=== PATIENT | female | born 1990 | race American Indian/Alaskan Native ===

== ENCOUNTER 2018-09-09 13:11 | Emergency (ER) | payer MEDICAID ==
--- NOTE | 2018-09-09 13:56 | Emergency Department Report ---
Blank Doc - Documentation Documentation: This is a 28-year-old female that presents with abdominal pain with nausea vom iting. This initial assessment/diagnostic orders/clinical plan/treatment(s) is/are subject to change based on patient's health status, clinical progression and re- assessment by fellow clinical providers in the ED. Further treatment and workup at subsequent clinical providers discretion. Patient/guardians urged not to elope from the ED as their condition may be serious if not clinically assessed and managed. Initial orders include: 1- Patient sent to [facility] for further evaluation and treatment 2- labs 3- UA
[2018-09-09 14:10] LABS: Eosinophils % (Auto) 0.8 % (0.0-4.3); Hematocrit 40.2 % (30.3-42.9); Hemoglobin 13.6 gm/dl (10.1-14.3); Lymphocytes # (Auto) 1.7 K/mm3 (1.2-5.4); Lymphocytes % (Auto) 34.2 % (13.4-35.0); Mean Corpuscular HGB Conc 34 % (30-34); Mean Corpuscular Volume 95 fl (79-97); Monocytes # (Auto) 0.3 K/mm3 (0.0-0.8); Monocytes % (Auto) 6.9 % (0.0-7.3); Platelet Count 376 K/mm3 (140-440); Red Blood Count 4.23 M/mm3 (3.65-5.03); Red Cell Distribution Width 12.8 % (13.2-15.2)
[2018-09-09 14:29] LABS: Albumin 4.4 g/dL (3.9-5); BUN/Creatinine Ratio 13; Bilirubin,Direct < 0.2 mg/dL (0-0.2); Blood Urea Nitrogen 9 mg/dL (7-17); Calcium 9.3 mg/dL (8.4-10.2); Hemolysis Index 103
[2018-09-09 14:32] LABS: Alanine Aminotransferase 14 units/L (7-56)
[2018-09-09 15:41] LABS: Bacteria,Urine 1+ /HPF (Negative); Bilirubin,Urine NEG (Negative); Blood,Urine NEG (Negative); Color,Urine Yellow (Yellow); Mucus,Urine 3+ /HPF; Protein,Urine <15 mg/dL mg/dL (Negative)
[2018-09-09 15:44] LABS: HCG Qualitative,Urine Negative (Negative)
[2018-09-09] MEDS ORDERED: ZOFRAN IV ONE (15:56)
[2018-09-09] MEDS ORDERED: TORADOL IV ONE (15:56)
[2018-09-09] MEDS ORDERED: NACL 0.9% 1000 ML 1,000 ML IV ONE (15:56)
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
[2018-09-09] MEDS ORDERED: MORPHINE IV ONE (17:14)
--- NOTE | 2018-09-09 18:04 | Cat Scan Report ---
PROCEDURE: CT ABDOMEN PELVIS WO CON TECHNIQUE: CT examination of the abdomen without IV contrast CT examination of the pelvis without IV contrast HISTORY: LUQ RUQ pain COMPARISONS: None FINDINGS: Intact-appearing orthopedic screws in the right femoral neck. Metal artifact limits the examination. No evidence of acute fracture. Clear lung bases. Normal noncontrast appearance of the liver, gallblad sid, adrenals, pancreas, and spleen. Normal caliber abdominal aorta and IVC. There are nonspecific hyperdense renal pyramids. This may reflect developmental variation, dehydratio n, or represent medullary nephrocalcinosis. No definite renal calculus or hydronephrosis. Normal-appe aring proximal ureters. Distal ureters are obscured by adjacent structures. Small fat-containing umbilical hernia. No inguinal hernia. No retroperitoneal adenopathy. No evidence of mesenteric mass. Normal-appearing stomach and duodenum. No small bowel distention in the abdomen and pelvis. No pelvic free fluid. Normal-appearing urinary bladder, retroverted uterus, and adnexa. Normal-appear ing rectum and sigmoid colon. No gross ascites, free air, or colonic distention. Normal-appearing cec um, terminal ileum, and appendix. Prominent stool from cecum to rectum may reflect constipation IMPRESSION: Prominent stool from cecum to rectum may reflect constipation Hyperdense renal pyramids may reflect developmental variation or dehydration. The differential inclu priti medullary nephrocalcinosis. Small fat-containing umbilical hernia This document is electronically signed by Peterson Haas MD., September 09 2018 06:01:02 PM ET
[2018-09-09 18:46] VITALS: BP 136/93
== END 2018-09-09 18:52 | disposition home or self-care (01) ==
LOC: ED 13:11
DX: K59.01 Slow transit constipation (principal); K42.0 Umbilical hernia with obstruction, without gangrene; Z88.8 Allergy status to other drugs, medicaments and biological substances
CPT/HCPCS: 36415; 74176; 80048; 80076; 81001; 81025; 83690; 85025; 96361; 96374; 96375; 99284; J1885; J2270; J2405; J7030

== ENCOUNTER 2019-01-15 11:14 | Inpatient (IN) | payer MEDICAID ==
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
[2019-01-15 12:17] LABS: Basophils % (Auto) 0.8 % (0.0-1.8); Eosinophils % (Auto) 0.4 % (0.0-4.3); Hematocrit 35.4 % (30.3-42.9); Hemoglobin 12.1 gm/dl (10.1-14.3); Lymphocytes # (Auto) 1.2 K/mm3 (1.2-5.4); Lymphocytes % (Auto) 29.7 % (13.4-35.0); Mean Corpuscular HGB Conc 34 % (30-34); Mean Corpuscular Volume 93 fl (79-97); Monocytes # (Auto) 0.3 K/mm3 (0.0-0.8); Platelet Count 409 K/mm3 (140-440); Red Cell Distribution Width 13.4 % (13.2-15.2)
[2019-01-15 12:46] LABS: Alanine Aminotransferase 18 units/L (7-56); Albumin 4.2 g/dL (3.9-5); BUN/Creatinine Ratio 13; Blood Urea Nitrogen 10 mg/dL (7-17); Calcium 9.2 mg/dL (8.4-10.2); Hemolysis Index 50
[2019-01-15 13:49] LABS: Bilirubin,Urine NEG (Negative); Blood,Urine NEG (Negative); Color,Urine Straw (Yellow); Mucus,Urine FEW /HPF; Protein,Urine <15 mg/dL mg/dL (Negative); RBC,Urine < 1.0 /HPF (0.0-6.0); Urobilinogen,Urine < 2.0 mg/dL (<2.0); WBC,Urine < 1.0 /HPF (0.0-6.0)
[2019-01-15 13:54] LABS: Amphetamine Screen,Urine PRESUMPTIVE NEGATIVE; Benzodiazepines Screen,Urine PRESUMPTIVE NEGATIVE; Cannabinoid Screen,Urine PRESUMPTIVE NEGATIVE; Cocaine Screen,Urine PRESUMPTIVE NEGATIVE; Methadone Screen,Urine PRESUMPTIVE NEGATIVE; Opiate Screen,Urine PRESUMPTIVE NEGATIVE
--- NOTE | 2019-01-15 14:18 | Cat Scan Report ---
CT BRAIN: 01/15/2019 INDICATION / CLINICAL INFORMATION: MAIN: AMS Weakness. COMPARISON: None available. FINDINGS: BRAIN/INTRACRANIAL STRUCTURES: Unenhanced CT images of the brain demonstrate no evidence of acute int racranial abnormality. Ventricles and sulci are normal in size and shape. There is no evidence of ischemic injury, hemorrhage, or mass. There are no abnormal extra-axial fluid collections. EXTRACRANIAL STRUCTURES: Unremarkable. IMPRESSION: Negative unenhanced CT of the brain. All CT scans at this location are performed using dose reduction to ALARA by means of automated expos ure control. Signer Name: Perico Chatman MD Signed: 01/15/2019 2:14 PM Workstation Name: [id number]
--- NOTE | 2019-01-15 15:04 | History and Physical Report ---
History of Present Illness Chief complaint: confused History of present illness: 28 YO Female with NO PMH presents to ED for evaluation. Pt is lethargic and is unable to provide history. Pt history taken from ED staff. per staff, the patient was seen and evaluated by her PCP and was found to have the aforementioned symptoms. Pt transported to [facility]. Pt seen and evaluated in ED and found to have Encephalopathy and Acidosis. Pt is responsive to sternal rub, and is agitated . Pt has positive gag reflex and is able to protect her airway. Pt admitted to medical floor with remote telemetry. No further history obtainable due to mental status. Past History Past Medical History: No medical history, other (reviewed) Past Surgical History: Other (Tubal ligation, shoulder, knee, jaw surgery.) Social history: single. denies: smoking, alcohol abuse, prescription drug abuse Family history: no significant family history, other (Reviewed:UTO) Medications and Allergies Allergies Allergy/AdvReac Type Severity Reaction Status Date / Time diphenhydramine Allergy Hives Verified 05/28/18 13:25 Home Medications Medication Instructions Recorded Confirmed Last Taken Type Acetaminophen/Codeine [Tylenol 1 tab PO Q6H PRN #14 tab 05/28/18 Unknown Rx /Codeine # 3 tab] Clindamycin [Clindamycin CAP] 300 mg PO Q8H 10 Days #30 cap 05/28/18 Unknown Rx Ibuprofen [Motrin] 600 mg PO Q8H PRN #12 tablet 05/28/18 Unknown Rx Docusate Sodium [Stool Softener] 100 mg PO BID #1 bottle 09/09/18 Unknown Rx Polyethylene Glycol/Elect 4,000 ml PO DAILY #1 bottle 09/09/18 Unknown Rx [Golytely] Review of Systems ROS unobtainable: due to mental status Exam - Constitutional Vitals: Temp Pulse Resp BP Pulse Ox 98.5 F 75 18 140/96 100 01/15/19 12:12 01/15/19 14:23 01/15/19 14:23 01/15/19 14:23 01/15/19 14:23 General appearance: Present: mild distress - EENT Eyes: Present: PERRL ENT: hearing intact, clear oral mucosa - Neck Neck: Present: supple, normal ROM - Respiratory Respiratory effort: normal Respiratory: bilateral: CTA - Cardiovascular Heart Sounds: Present: S1 & S2. Absent: rub, click - Extremities Extremities: pulses symmetrical, No edema Peripheral Pulses: within normal limits - Abdominal General gastrointestinal: Present: soft, non-tender, non-distended, normal bowel sounds Female genitourinary: Present: normal - Integumentary Integumentary: Present: clear, warm, dry - Musculoskeletal Musculoskeletal: gait normal, strength equal bilaterally - Psychiatric Psychiatric: appropriate mood/affect, intact judgment & insight - Neurologic Neurologic: CNII-XII intact, moves all extremities Results - Labs CBC & Chem 7: 01/15/19 12:02 01/15/19 12:02 Labs: Abnormal lab results 01/15/19 01/15/19 Range/Units 12:02 12:02 WBC 4.1 L (4.5-11.0) K/mm3 Carbon Dioxide 20 L (22-30) mmol/L Assessment and Plan - Patient Problems (1) Metabolic encephalopathy Current Visit: Yes Status: Acute Plan to address problem: CT head, neuro check, EEG, thyroid panel, cbc, cmp, IVF resuscitation therapy, echo, Urine Drug Screen. (2) Acidosis Current Visit: Yes Status: Acute Plan to address problem: IVF resuscitation therapy, repeat bmp (3) DVT prophylaxis Current Visit: Yes Status: Acute Plan to address problem: SCD to BLE while in bed, prophylactic lovenox.
[2019-01-15] MEDS ORDERED: ZOFRAN IV PRN (15:06)
[2019-01-15] MEDS ORDERED: TYLENOL PO PRN ×2 (15:06→22:11)
[2019-01-15] MEDS ORDERED: SODIUM CHLORIDE FLUSH SYRINGE 10 ML IV PRN (15:06)
[2019-01-15] MEDS ORDERED: PROVENTIL IH PRN (15:06)
[2019-01-15 15:59] LABS: Free T4 (Free Thyroxine) 0.92 ng/dL (0.76-1.46)
[2019-01-15] MEDS: LOVENOX SUB-Q SCH (21:59)
[2019-01-15] MEDS: SODIUM CHLORIDE FLUSH SYRINGE 10 ML IV SCH (22:04)
[2019-01-15] MEDS: TYLENOL #3 PO PRN (22:58)
[2019-01-15] MEDS: ATIVAN PO SCH (22:58)
[2019-01-16 06:06] LABS: Hematocrit 31.5 % (30.3-42.9); Hemoglobin 10.8 gm/dl (10.1-14.3); Mean Corpuscular HGB Conc 34 % (30-34); Mean Corpuscular Volume 93 fl (79-97); Platelet Count 364 K/mm3 (140-440); Red Blood Count 3.39 M/mm3 (3.65-5.03); Red Cell Distribution Width 13.5 % (13.2-15.2)
[2019-01-16 06:27] LABS: Alanine Aminotransferase 14 units/L (7-56); Albumin 3.9 g/dL (3.9-5); BUN/Creatinine Ratio 12; Blood Urea Nitrogen 11 mg/dL (7-17); Hemolysis Index 8
[2019-01-16 07:20] LABS: Platelet Estimate Cons; RBC Morphology Normal; Total Cells Counted 100
[2019-01-16] MEDS: TYLENOL #3 PO PRN ×2 (07:36→15:20)
[2019-01-16] MEDS ORDERED: QUETIAPINE FUMARATE 100 MG PO SCH (10:00)
[2019-01-16] MEDS: BENTYL PO SCH (10:50)
[2019-01-16] MEDS: NORVASC PO SCH (10:50)
[2019-01-16] MEDS: PROzac PO SCH (10:50)
[2019-01-16] MEDS: ATIVAN PO SCH ×2 (10:50→21:56)
[2019-01-16] MEDS: SODIUM CHLORIDE FLUSH SYRINGE 10 ML IV SCH ×2 (10:51→21:56)
[2019-01-16] MEDS: NAPROSYN PO SCH ×2 (11:00→13:01)
--- NOTE | 2019-01-16 11:49 | Progress Note ---
Assessment and Plan Acute encephalopathy - possible drug overdose with seroquel vs seizure CT head normal, UDS negative, pending EEG, thyroid panel, cont IVF resuscitation therapy, follow blood cx - consult neuro and mental health, reduce and change frequency of seroquel Bipolar disorder - resume home meds, no SI - denies drug overdose, follow psych recommendation - change seroquel to 100mg BID Leukopenia, monitor DVT prophylaxis - SCD to BLE while in bed, prophylactic lovenox. Subjective Date of service: 01/16/19 Interval history: Patient seen and examined denies any chest pain or SOB, denies SI or drug OD Objective - Constitutional Vitals: Vital Signs - 12hr 01/16/19 01/16/19 01/16/19 05:18 07:36 08:33 Temperature 98.4 F Pulse Rate 82 Respiratory 18 16 Rate Blood Pressure 132/86 O2 Sat by Pulse 99 100 Oximetry General appearance: Present: no acute distress, well-nourished - EENT Eyes: PERRL, EOM intact ENT: hearing intact, clear oral mucosa Ears: bilateral: normal - Neck Neck: supple, normal ROM - Respiratory Respiratory effort: normal Respiratory: bilateral: CTA - Cardiovascular Rhythm: regular Heart Sounds: Present: S1 & S2. Absent: gallop, rub Extremities: pulses intact, No edema, normal color, Full ROM - Gastrointestinal General gastrointestinal: Present: soft, non-tender, non-distended, normal bowel sounds - Integumentary Integumentary: clear, warm, dry - Musculoskeletal Musculoskeletal: 1, strength equal bilaterally - Neurologic Neurologic: moves all extremities - Psychiatric Psychiatric: memory intact, appropriate mood/affect, intact judgment & insight - Labs CBC & Chem 7: 01/16/19 05:40 01/16/19 05:40 Labs: Abnormal lab results 01/15/19 01/15/19 01/16/19 Range/Units 12:02 12:02 05:40 WBC 4.1 L 3.4 L (4.5-11.0) K/mm3 RBC 3.39 L (3.65-5.03) M/mm3 Seg Neuts % (Manual) 27.0 L (40.0-70.0) % Lymphocytes % (Manual) 66.0 H (13.4-35.0) % Basophils % (Manual) 2.0 H (0.0-1.8) % Seg Neutrophils # Man 0.9 L (1.8-7.7) K/mm3 Carbon Dioxide 20 L (22-30) mmol/L
--- NOTE | 2019-01-16 13:06 | Progress Note ---
Subjective Date of service: 01/16/19 Interval history: went over the ED note it appears basis for admission is sleepy and lethargic state agree the CT ias normal will study the labs perhaps check EEG for sleep paramter Kim will know Objective - Vital Sign Vital Signs - 12hr 01/16/19 01/16/19 01/16/19 05:18 07:36 08:33 Temperature 98.4 F Pulse Rate 82 Respiratory 18 16 Rate Blood Pressure 132/86 O2 Sat by Pulse 99 100 Oximetry 01/16/19 11:24 Temperature 98.7 F Pulse Rate 96 H Respiratory 20 Rate Blood Pressure 135/89 O2 Sat by Pulse 96 Oximetry - Laboratory Findings CBC and BMP: 01/16/19 05:40 01/16/19 05:40 Abnormal Lab Findings: Abnormal Labs 01/15/19 01/15/19 01/16/19 12:02 12:02 05:40 WBC 4.1 L 3.4 L RBC 3.39 L Seg Neuts % (Manual) 27.0 L Lymphocytes % (Manual) 66.0 H Basophils % (Manual) 2.0 H Seg Neutrophils # Man 0.9 L Carbon Dioxide 20 L
[2019-01-16] MEDS: LOVENOX SUB-Q SCH (21:56)
[2019-01-17] MEDS: NAPROSYN PO SCH (09:59)
[2019-01-17] MEDS: ATIVAN PO SCH (09:59)
[2019-01-17] MEDS: NORVASC PO SCH (09:59)
[2019-01-17] MEDS: BENTYL PO SCH (10:00)
[2019-01-17] MEDS: PROzac PO SCH (10:00)
[2019-01-17] MEDS: SODIUM CHLORIDE FLUSH SYRINGE 10 ML IV SCH (10:00)
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
[2019-01-17 14:56] VITALS: BP 111/61
--- NOTE | 2019-01-17 14:56 | Discharge Summary ---
Providers - Providers Date of Admission: 01/15/19 15:06 Date of discharge: 01/17/19 Attending physician: ESTRELLA STUART 01/16/19 11:42 Consult to Mental Health [CONS] Routine Reason For Exam: possible drug OD Place consult to:: mental health Notified:: darlyn Phone number called:: [phone] Was contact made?: Yes If yes, spoke with:: joseph Time called:: 12:47 01/16/19 11:44 Consult to Physician [CONS] Routine Comment: Consulting Provider: BARRETT GUTIERRES Physician Instructions: Reason For Exam: possible seizure [facility] Condition: Serious Pertinent studies: Head CT Hospital course: 28 YO Female was seen and evaluated by her PCP and was found to be lethargic and less responsive. Pt transported to [facility], seen and evaluated in ED and found to have Encephalopathy, was responsive to sternal rub, and agitated. Patient was admitted to medical floor with remote telemetry for further evaluation and management. Discharge diagnosis and management: Acute encephalopathy - due to medication induced vs drug overdose with seroquel - CT head normal, UDS negative, negative blood cx - consulted neuro and mental health, reduced and changed frequency of seroquel Bipolar disorder - no SI - psych consulted, and recommended to cont prozac 10mg daily and seroquel to 100mg qhs - will cont outpt psych f/u Leukopenia, monitored, no sign of infection HTN, stable on norvasc DVT prophylaxis - SCD to BLE while in bed, prophylactic lovenox. Physical exam: General appearance: Present: no acute distress, well-nourished - EENT Eyes: PERRL, EOM intact ENT: hearing intact, clear oral mucosa Ears: bilateral: normal - Neck Neck: supple, normal ROM - Respiratory Respiratory effort: normal Respiratory: bilateral: CTA - Cardiovascular Rhythm: regular Heart Sounds: Present: S1 & S2. Absent: gallop, rub Extremities: pulses intact, No edema, normal color, Full ROM - Gastrointestinal General gastrointestinal: Present: soft, non-tender, non-distended, normal bowel sounds - Integumentary Integumentary: clear, warm, dry - Musculoskeletal Musculoskeletal: 1, strength equal bilaterally - Neurologic Neurologic: moves all extremities - Psychiatric Psychiatric: memory intact, appropriate mood/affect, intact judgment & insight Disposition: DC-01 TO HOME OR SELFCARE Time spent for discharge: 34 minutes Core Measure Documentation - Palliative Care Palliative Care/ Comfort Measures: Not Applicable - Core Measures Any of the following diagnoses?: none Exam - Constitutional Vitals: Temp Pulse Resp BP Pulse Ox 98.0 F 75 18 104/65 99 01/17/19 06:14 01/17/19 06:14 01/17/19 06:14 01/17/19 06:14 01/17/19 06:14 Plan Activity: advance as tolerated Weight Bearing Status: Weight Bear as Tolerated Diet: regular Additional Instructions: follow up at [facility] for outpatient psy services. Follow up with: TEZ PEACOCK MD [Primary Care Provider] - 3-5 Days
== END 2019-01-17 18:36 | disposition home or self-care (01) | DRG 917 ==
LOC: ED 11:14 → 3A 15:06
PROVIDERS: ADMIT Internal Medicine; ATTEND Internal Medicine
DX: T43.591A Poisoning by other antipsychotics and neuroleptics, accidental (unintentional), initial encounter (principal); G92 Toxic encephalopathy; E87.2 Acidosis; F31.9 Bipolar disorder, unspecified; I10 Essential (primary) hypertension; D72.819 Decreased white blood cell count, unspecified; Y92.89 Other specified places as the place of occurrence of the external cause; Z79.899 Other long term (current) drug therapy; Z98.51 Tubal ligation status
CPT/HCPCS: 36415; 70450; 80053; 80307; 80320; 81001; 82140; 84439; 84443; 84484; 84703; 85007; 85025; 87040; 87116; 93005; 93010; 93306; 96372; 96374; G0378; G0480; J1650